=== PATIENT | female | born 1995 | race Native Hawaiian/Other Pacific Islander ===

== ENCOUNTER 2016-09-22 20:09 | Emergency (ER) | payer OTHER ==
[~2016-09-22] VITALS: Ht 160 cm; Wt 72.7 kg
[2016-09-22 20:19] VITALS: BP 143/88; RESP 16; O2SAT 100
--- NOTE | 2016-09-22 22:02 | ED.REPORT ---
HPI-General Illness Date of Service Sep 22, 2016 ED Provider: Dr. Patrick Stovall M.D. A healthy 20 year old female presents to the ED with right ear pain and pressure onset one week ago, upon awakening. Associated symptoms include imbalance and muffled hearing in left ear. The patient denies left ear discharge , nasal congestion, sore throat, cough, or other symptoms. Nursing Notes Stated Complaint: RIGHT EAR PAIN Chief Complaint: ENT & Mouth Nursing Notes Reviewed: Yes Allergies: Coded Allergies: No Known Allergies (Unverified , 09/22/16) General Time Seen by MD: 22:01 Chief Complaint Ear pain (Right) Hx Obtained From: Patient Arrived By: Walk-in Sudden in Onset?: Yes Onset Occurred: 1 week ago Symptom Duration: Since onset Location: : Ear right Quality: Painful Severity: Current: Moderate Severity: Maximum: Moderate Associated with: Denies: Cough, Fever, Nasal discharge Pertinent Negative: Relieved by nothing Recent Healthcare: No recent doctor visit Past Medical History Past Medical History None reported Past Surgical History None reported Smoking History Unknown if Ever Smoker Occupation Works at [email or web address] Ambulatory Status Independent Review of Systems + Imbalance LNMP 08/23/16 Full Review of Systems Constitutional: Denies: Fever Ears / Nose / Throat: Reports: Earache right (Pressure), Hearing loss right ( Muffled), Denies: Ear drainage right, Nasal congestion, Sore throat Respiratory: Denies: Non-productive cough, Shortness of breath GI: Denies: Diarrhea, Vomiting Complete sys rev & neg: except as marked. Physical Exam Vital Signs Vital Signs Date Time Temp Pulse Resp B/P Pulse Ox O2 Delivery O2 Flow Rate FiO2 09/22/16 22:29 36.3 72 18 130/89 99 Room Air 09/22/16 20:19 36.2 69 16 143/88 100 Room Air Initial VS: Reviewed Head / Eyes: Atraumatic, Normocephalic Skin: Warm, Dry Neurologic: Alert, Oriented, Nonfocal Psychiatric: Mood/affect normal, Behavior normal, Normal thought content General/Constitutional: Awake, Alert, No acute distress ENT: Airway patent, Mucous membranes moist, Tympanic membs NL, Ext aud canal NL , Mastoid area NL Pharynx / Tonsils / Uvula: Positive: Tonsillar swelling L, Tonsillar swelling R , Negative: Tonsillar erythema L, Tonsillar erythema R Neck: Supple, Full range of motion Soft Tissue Neck: Positive: Cervical adenopathy R... Re-Eval/Medical Decision Time of Eval: 22:20 Patient Status: Condition improved Re-Evaluation/Progress Note: Discussed with patient physical exam findings, diagnosis, and plan for discharge. Follow-up and return to the ER instructions given. Patient agrees with plan for care and all questions were addressed. Counseled Regarding: Diagnosis, Need for follow-up, When/why to return to ED Discharge & Departure Primary Impression: Eustachian tube dysfunction Laterality: right Qualified Code: H69.81 - Other specified disorders of Eustachian tube, right ear Disposition: Home Discharge Condition All VS Reviewed: Yes Condition: Improved Additional Instructions: On exam today, R ear appears normal. This is consistent with a blocked eustachian tube, the passage to equalize pressure across the eardrum. Ibuprofen should help pain and hopefully decrease the inflammation/swelling that is blocking the tube. Use this 600mg 4 times daily, take with food. Also , use oxymetazoline nasal spray for 2 days- this is over the counter. Follow up with ENT next week, call for an appointment. Referrals: [facility] (PCP) [facility] Scrcathy Attestation Portions of this note were transcribed by Sarah Perez. I, Dr. Stovall, personally performed the history, physical exam, and medical decision-making; I reviewed and confirmed the accuracy of the information in the transcribed note. Signed by: Taye Hough, 09/22/2016, 22:55 copies to: [facility] Patrick Stovall MD Sep 22, 2016 22:02 SARAH PEREZ Sep 22, 2016 22:12
[2016-09-22 22:29] VITALS: BP 130/89; PULSE 72; RESP 18; O2SAT 99
== END 2016-09-22 22:30 | disposition home or self-care (01) ==
LOC: SED 20:09
DX: H69.81 Other specified disorders of Eustachian tube, right ear (principal)